=== PATIENT | female | born 1985 | race Caucasian/White ===

== ENCOUNTER → 2016-12-24 | Outpatient (CLI) | payer OTHER ==
[~2016-12-24] MED LIST: ACET325T96 PO; IBUP-103 PO; PRENTAB26 PO
[2016-12-24 09:36] LABS: HEMATOCRIT 39.4 % (37-47); MEAN CELL VOLUME 89.7 fL (80-100); MEAN CORPUSCULAR HEMOGLOBIN 30.8 pg (25-34); MEAN CORPUSCULAR HGB CONC 34.3 g/dl (32-36); MEAN PLATELET VOLUME 11.2 fL (7.4-10.4); PLATELET COUNT 211 K/uL (130-400); RED BLOOD COUNT 4.39 M/uL (4.2-5.4)
[2016-12-24 10:08] LABS: CHOLESTEROL/HDL RATIO 2.9; THYROID STIMULATING HORMONE 1.32 uIu/ml (0.300-4.500)
== END | disposition home or self-care (01) ==
LOC: C.LAB1850 07:40
PROVIDERS: ATTEND Physician Assistant
DX: R07.89 Other chest pain (principal); R53.83 Other fatigue

== ENCOUNTER → 2016-12-24 | Outpatient (CLI) | payer OTHER ==
--- NOTE | 2016-12-24 12:48 | MAMMOGRAPHY REPORT ---
ULTRASOUND OF LEFT BREAST: 12/24/2016 CLINICAL HISTORY: Six-month follow-up of left breast mass. The patient reports that her previously described left nipple discharge has resolved. She does note left superior breast pain for approxima tely 3 months, which is sharp and intermittent. She denies a palpable lump. COMPARISON: Comparison is made to exams dated: 06/25/2016 mammogram and 06/25/2016 ultrasound - [facility]. TECHNIQUE: Real-time targeted ultrasound of the left breast was performed. FINDINGS: Real-time, high resolution targeted ultrasound was performed of the left breast at the site of the p reviously seen mass. In the left breast at 11:00, 2 cm from the nipple, again noted is an oval hypo echoic parallel circumscribed solid mass which measures 13 x 7 x 11 mm. The mass is stable in size and appearance compared to the 06/25/2016 exam (previously measuring 12 x 7 x 12 mm). Given the ines ign morphology and stability, the mass is probably benign and likely represents a fibroadenoma. The options of another short interval follow-up versus biopsy were discussed with the patient, and at t his time we will opt for short interval follow-up. Targeted ultrasound was performed of the area of pain in the left superior breast pointed out by the patient from approximately 11 to 1:00. No suspicious masses or other suspicious sonographic abnorm alities are evident. IMPRESSION: ACR-BI-RADS CATEGORY 3: PROBABLY BENIGN - FOLLOW-UP RECOMMENDED 1. Stable hypoechoic circumscribed 13 mm mass in the left breast at 11:00. The mass is probably be nign and likely represents a fibroadenoma. Recommend another short interval follow-up ultrasound in 6 months to confirm one-year of stability. 2. No suspicious sonographic abnormality in the left superior breast at the site of pain pointed ou t by the patient. Recommend clinical follow-up. The patient was verbally notified of the results. Ro Bran M.D. /:12/24/2016 08:16:24 Lsw: Ro Bran MD, [facility] letter sent: Follow Up Recommended 3 BI-RADS Code: ACR-BI-RADS Category 3: Probably Benign
== END | disposition home or self-care (01) ==
LOC: C.MAMM 07:54
PROVIDERS: ATTEND Obstetrics & Gynecology
DX: R92.2 Inconclusive mammogram (principal); N63 Unspecified lump in breast; N64.4 Mastodynia

== ENCOUNTER → 2017-04-16 | Outpatient (CLI) | payer OTHER ==
[2017-04-16 09:49] LABS: BLOOD UREA NITROGEN 11 mg/dl (7-18); BUN/CREATININE RATIO 13.7 (10-20); CALCIUM 8.5 mg/dl (8.5-10.1); CARBON DIOXIDE 26 mmol/L (21-32); CHLORIDE 108 mmol/L (98-107); CREATININE 0.78 mg/dl (0.60-1.20); GLUCOSE 84 mg/dl (70-99); POTASSIUM 3.8 mmol/L (3.5-5.1); SODIUM 139 mmol/L (136-145)
== END | disposition home or self-care (01) ==
LOC: C.LAB1850 07:25
PROVIDERS: ATTEND Internal Medicine
DX: R53.83 Other fatigue (principal); R51 Headache

== ENCOUNTER → 2017-04-30 | Outpatient (CLI) | payer OTHER ==
[2017-04-30 16:57] LABS: BASO % 0.4 %; BASO ABS # 0.02 K/uL (0-0.2); COMPLETE YES; EOS % 1.6 %; HEMATOCRIT 38.9 % (37-47); IG% 0.2 %; LYMPH % 36.2 %; LYMPH ABS # 2.01 K/uL (1.2-3.4); MEAN CELL VOLUME 91.7 fL (80-100); MEAN CORPUSCULAR HEMOGLOBIN 31.1 pg (25-34); MEAN CORPUSCULAR HGB CONC 33.9 g/dl (32-36); MONO % 7.4 %; NEUT % 54.2 %; PLATELET COUNT 170 K/uL (130-400); RED BLOOD COUNT 4.24 M/uL (4.2-5.4); WHITE BLOOD COUNT 5.55 K/uL (4.8-10.8)
[2017-04-30 17:06] LABS: ALT/SGPT 23 U/L (12-78); BLOOD UREA NITROGEN 15 mg/dl (7-18); BUN/CREATININE RATIO 25.7 (10-20); CALCIUM 8.5 mg/dl (8.5-10.1); CARBON DIOXIDE 30 mmol/L (21-32); CHLORIDE 107 mmol/L (98-107); GLUCOSE 83 mg/dl (70-99); POTASSIUM 3.7 mmol/L (3.5-5.1); SODIUM 139 mmol/L (136-145)
[2017-04-30 17:08] LABS: ALB/GLOB RATIO 0.9 (0.9-2); ALKALINE PHOSPHATASE 50 U/L (45-117); AST/SGOT 14 U/L (15-37)
[2017-05-05 13:29] LABS: COXSACKIE B1 1:16 (<1:8); COXSACKIE B2 1:16 (<1:8); COXSACKIE B3 <1:8 (<1:8); COXSACKIE B4 <1:8 (<1:8); COXSACKIE B5 1:16 (<1:8)
== END | disposition home or self-care (01) ==
LOC: C.LABBC 14:53
PROVIDERS: ATTEND Physician Assistant
DX: R50.9 Fever, unspecified (principal)

== ENCOUNTER → 2017-05-11 | Outpatient (CLI) | payer OTHER ==
--- NOTE | 2017-05-11 15:03 | DIAGNOSTIC IMAGING REPORT ---
CERVICAL SPINE 2 OR 3 VIEWS CLINICAL HISTORY: S16.1XXA Cervical [id number] neck pain COMPARISON STUDY: 11/01/2014 FINDINGS: The prevertebral soft tissues are normal. There is a slight reversal of the normal cervical lordosis. No fractures or traumatic subluxations are visualized. IMPRESSION: Reversal the normal cervical lordosis. No fractures or traumatic subluxations identified. No destructive lesions are visualized on conventional radiographic imaging Electronically signed by: Wallace Perea M.D. 05/11/2017 3:02 PM Dictated Date/Time: 05/11/2017 3:01 PM
== END | disposition home or self-care (01) ==
LOC: C.RAD1850 14:46
PROVIDERS: ATTEND Physician Assistant
DX: S16.1XXA Strain of muscle, fascia and tendon at neck level, initial encounter (principal); X58.XXXA Exposure to other specified factors, initial encounter

== ENCOUNTER → 2017-06-22 | Outpatient (CLI) | payer OTHER ==
[2017-06-22 18:35] LABS: URINE APPEARANCE CLOUDY (CLEAR); URINE BILIRUBIN NEG (NEG); URINE COLOR YELLOW; URINE EPITHELIAL CELL AUTO >30 /lpf (0-5); URINE NITRITE NEG (NEG); URINE PH 6.5 (4.5-7.5); URINE SPECIFIC GRAVITY 1.025 (1.000-1.030); UROBILINOGEN NEG (NEG)
[2017-06-22 18:37] LABS: MANUAL MICROSCOPIC REQUIRED? NO; REVIEW REQ? NO
== END | disposition home or self-care (01) ==
LOC: C.LABSPEC 16:14
PROVIDERS: ATTEND Physician Assistant
DX: N89.8 Other specified noninflammatory disorders of vagina (principal); R39.9 Unspecified symptoms and signs involving the genitourinary system

== ENCOUNTER → 2017-06-22 | Outpatient (CLI) | payer OTHER | END | disposition home or self-care (01) | LOC: C.PAPS 15:53 | PROVIDERS: ATTEND Physician Assistant | DX: Z12.4 Encounter for screening for malignant neoplasm of cervix (principal) ==

== ENCOUNTER → 2017-06-25 | Outpatient (CLI) | payer OTHER ==
--- NOTE | 2017-06-25 13:56 | MAMMOGRAPHY REPORT ---
ULTRASOUND OF LEFT BREAST: 06/25/2017 CLINICAL HISTORY: Six-month follow-up of left breast mass. The patient reports continued intermitten t left breast pain. COMPARISON: Comparison is made to exams dated: 12/24/2016 ultrasound, 06/25/2016 ultrasound, and 06/14 mammogram - [facility]. TECHNIQUE: Real-time targeted ultrasound of the left breast was performed. FINDINGS: Real-time, high resolution targeted ultrasound was performed of the area of the left breas t mass. In the left breast at 11:00, 2 cm from the nipple, again noted is an oval circumscribed hypo echoic solid mass which measures 1.3 x 0.7 x 1.1 cm. This is stable dating back to the June 2016 exam where the mass measured 1.2 x 1.2 x 0.7 cm. Given the morphology and 1 year of stability, the m ass is probably benign and likely represents a fibroadenoma. Recommend a follow-up ultrasound in one year to confirm 2 years of stability. IMPRESSION: ACR-BI-RADS CATEGORY 3: PROBABLY BENIGN - FOLLOW-UP RECOMMENDED Stable size and appearance of hypoechoic 1.3 cm mass in the left breast at 11:00 on ultrasound, stabl e dating back to the June 2016 exam. The mass is probably benign and likely represents a fibroade noma. Recommend follow-up targeted ultrasound in one year to confirm 2 years of stability of the mas s. Also recommend continued clinical follow-up for left breast pain. The patient was verbally notified of the results. Ro Bran M.D. ah/:06/25/2017 08:22:46 Promotion Specialist: Ro Bran MD, [facility] letter sent: Follow Up Recommended 3 BI-RADS Code: ACR-BI-RADS Category 3: Probably Benign
== END | disposition home or self-care (01) ==
LOC: C.MAMM 08:04
PROVIDERS: ATTEND Obstetrics & Gynecology
DX: R92.2 Inconclusive mammogram (principal); N63.20 Unspecified lump in the left breast, unspecified quadrant

== ENCOUNTER → 2017-09-01 | Outpatient (CLI) | payer OTHER ==
[~2017-09-01] MED LIST changes: +OPTIRAY 320 IV PRN
--- NOTE | 2017-09-01 08:49 | DIAGNOSTIC IMAGING REPORT ---
CT ABD/PELVIS COMBO WITH ORAL CLINICAL HISTORY: R10.9 Abdominal painK62.5 Bright red rectal rejnckrlE45.9 hepatic mass COMPARISON STUDY: None. TECHNIQUE: Unenhanced images were obtained through the abdomen and pelvis. The patient was then scanned in a dynamic helical fashion during intravenous administration of 120 cc of Optiray 320. Arterial and portal phase imaging was performed. A dose lowering technique was utilized adhering to the principles of ALARA. CT DOSE: 963.63 mGy.cm FINDINGS: Lower chest: The heart is normal in size and configuration, without pericardial effusion. The lung bases and pleural spaces are clear. Liver: There is 24 mm hypervascular focus within the central liver. This is not visualized on portal phase imaging. This is likely benign given the patient's age. Correlation with prior studies would be of benefit. If further characterization is desired, an MRI of the liver could be obtained. Gallbladder: Unremarkable. Spleen: Normal in size and attenuation. Pancreas: Unremarkable. Adrenal glands: Unremarkable. Kidneys: No renal, ureteral, or bladder calculi are visualized. No renal masses are visualized. Bowel: There are no transition zones indicate bowel obstruction. There is no evidence of acute diverticulitis. There is no pathologic bowel wall thickening. The appendix appears normal. Peritoneum: There is no intraperitoneal free air or abdominal ascites. Vasculature: The abdominal aorta is normal in course and caliber. Adenopathy: None. Pelvic viscera: Benign-appearing ovarian follicles are visualized. Skeletal structures: No destructive osseous lesions are seen. IMPRESSION: 1. No evidence of bowel obstruction. No evidence of free air 2. No acute inflammatory changes 3. Nonspecific 24 mm hypervascular focus within the central liver. This area is isodense on portal phase imaging. Given the appearance of this lesion, and given the patient's age, this is likely benign. Electronically signed by: Wallace Perea M.D. 09/01/2017 8:48 AM Dictated Date/Time: 09/01/2017 8:38 AM
== END | disposition home or self-care (01) ==
LOC: C.CTS 08:07
PROVIDERS: ATTEND Internal Medicine
DX: K76.9 Liver disease, unspecified (principal); K62.5 Hemorrhage of anus and rectum; R10.9 Unspecified abdominal pain

== ENCOUNTER → 2017-11-16 | Outpatient (CLI) | payer OTHER ==
[~2017-11-16] MED LIST changes: +ACET-1693 PO; -ACET325T96 PO; -OPTIRAY 320 IV PRN
== END | disposition home or self-care (01) ==
LOC: C.LAB1850 11:27
PROVIDERS: ATTEND Physician Assistant
DX: E55.9 Vitamin D deficiency, unspecified (principal); N92.6 Irregular menstruation, unspecified

== ENCOUNTER → 2017-11-16 | Outpatient (CLI) | payer OTHER | END | disposition home or self-care (01) | LOC: C.LABSPEC 13:21 | PROVIDERS: ATTEND Physician Assistant | DX: R39.9 Unspecified symptoms and signs involving the genitourinary system (principal); N89.8 Other specified noninflammatory disorders of vagina ==

== ENCOUNTER → 2017-12-21 | Outpatient (CLI) | payer OTHER | END | disposition home or self-care (01) | LOC: C.LABSPEC 16:03 | PROVIDERS: ATTEND Physician Assistant | DX: N94.9 Unspecified condition associated with female genital organs and menstrual cycle (principal) ==

== ENCOUNTER → 2018-04-21 | Outpatient (CLI) | payer OTHER ==
--- NOTE | 2018-04-21 17:35 | DIAGNOSTIC IMAGING REPORT ---
R KNEE 3 VIEWS CLINICAL HISTORY: M25.561 Chronic pain of right [id number] COMPARISON: None. DISCUSSION: The bones and joint spaces appear intact. There is no evidence of fracture, dislocation or bony disease. There is no evidence for soft tissue swelling. IMPRESSION: Negative study. The above report was generated using voice recognition software. It may contain grammatical, syntax or spelling errors. Electronically signed by: Maikel Lutz M.D. 04/21/2018 5:33 PM Dictated Date/Time: 04/21/2018 5:32 PM
== END | disposition home or self-care (01) ==
LOC: C.RAD 17:13
PROVIDERS: ATTEND Internal Medicine
DX: M25.561 Pain in right knee (principal)